=== PATIENT | female | born 1955 | race Caucasian/White ===

== ENCOUNTER 2018-09-26 13:58 | Outpatient (CLI) | payer BC ==
--- NOTE | 2018-09-26 14:28 | RAD ---
Exam: Chest 2 views HISTORY:Dyspnea Comparison: 04/18/2017 FINDINGS: Lungs: No masses or consolidation. Cardiac silhouette: Normal size Pulmonary vessels: Normal Pleural Spaces: Clear Pneumothorax: None Osseous abnormalities: None of acuity. IMPRESSION: No focal consolidation.
== END 2018-09-26 13:59 | disposition home or self-care (01) ==
LOC: RAD 13:58
PROVIDERS: ATTEND Internal Medicine Pulmonary Disease
DX: R06.00 Dyspnea, unspecified (principal)
CPT/HCPCS: 71046

== ENCOUNTER 2022-03-08 15:05 | Emergency (ER) | payer MEDICARE, BC ==
[2022-03-08 15:37] LABS: #Lymphocytes 1.2 thou/uL (1.20-3.40); #Monocytes 0.4 thou/uL (0.11-0.59); #Neutrophils 8.3 thou/uL (1.40-6.50); %Basophils 0.2 % (0.0-1.0); %Eosinophils 0.1 % (0.0-10.0); %Lymphocytes 11.7 % (21.0-51.0); %Monocytes 4.5 % (0.0-10.0); %Neutrophils 83.5 % (42.0-75.0); Hemoglobin 12.9 g/dL (12.0-16.0); Mean Corpuscular HGB CONC 32.8 g/dL (32.0-36.0); Mean Corpuscular Hemoglobin 29.1 pg (27.0-31.0); Mean Corpuscular Volume 88.7 fl (78.0-98.0); Mean Platelet Volume 6.5 fL (7.4-10.4); Platelet Count 373 thou/uL (130-400); RBC Distribution Width 12.8 % (11.5-14.5); Red Blood Cell (RBC) Count 4.44 mill/uL (4.20-5.40); White Blood Cell (WBC) Count 9.9 thou/uL (4.8-10.8)
[2022-03-08 16:07] LABS: Globulin 2.6 g/dL (2.4-3.5)
[2022-03-08 16:30] LABS: ALT (SGPT) 19 U/L (8-55); AST (SGOT) 17 U/L (5-34); Albumin 4.3 g/dL (3.4-4.8); Alkaline Phosphatase 72 U/L (40-110); Anion Gap 17 mmol/L (10-20); BUN (Urea Nitrogen) 16 mg/dL (9.8-20.1); Bilirubin, Total 0.2 mg/dL (0.2-1.2); Calc. Creatinine Clearance 0 mL/min (70-130); Calcium 9.5 mg/dL (7.8-10.44); Carbon Dioxide 21 mmol/L (23-31); Chloride 104 mmol/L (98-107); Estimated GFR 94; Glucose 135 mg/dL (80-115); Potassium 3.7 mmol/L (3.5-5.1); Sodium 138 mmol/L (136-145)
== END 2022-03-08 18:01 | disposition home or self-care (01) ==
LOC: ERS 15:05
DX: G51.0 Bell's palsy (principal); E03.9 Hypothyroidism, unspecified; I10 Essential (primary) hypertension
CPT/HCPCS: 36415; 70450; 71045; 80053; 84484; 85025; 93005

== ENCOUNTER 2023-12-21 14:30 | Outpatient (CLI) | payer MEDICARE, BC | END 2023-12-21 14:31 | disposition home or self-care (01) | LOC: MRI 14:30 → SCSMRI 14:31 | PROVIDERS: ATTEND Internal Medicine | DX: R79.89 Other specified abnormal findings of blood chemistry (principal); K86.2 Cyst of pancreas; N28.1 Cyst of kidney, acquired | CPT/HCPCS: 74181; 76377 ==

== ENCOUNTER 2024-04-20 11:59 | Outpatient (CLI) | payer MEDICARE, BC ==
[~2024-04-20 11:59] MED LIST: Magnevist 469MG/ML 20 ML VIAL ONE
== END 2024-04-20 12:00 | disposition home or self-care (01) ==
LOC: MRI 11:59
PROVIDERS: ATTEND Internal Medicine
DX: K86.2 Cyst of pancreas (principal); N28.1 Cyst of kidney, acquired; D73.4 Cyst of spleen
CPT/HCPCS: 74183